=== PATIENT | male | born 1970 | race Caucasian/White ===

== ENCOUNTER → 2020-08-26 | Outpatient (CLI) | payer BC ==
[~2020-08-26] MED LIST: NORCO 325 MG-51 TAB PO; SYNTHROID 0.0.025 MG PO
== END ==
LOC: COL.RAD 14:30
DX: N13.2 Hydronephrosis with renal and ureteral calculous obstruction (principal)

== ENCOUNTER 2020-08-29 07:19 | Day surgery (SDC) | payer BC ==
[~2020-08-29] VITALS: Ht 185.4 cm; Wt 96.1 kg
[2020-08-29] MEDS ORDERED: SYNTHROID 0.0.025 MG PO (08:43)
[2020-08-29 08:44] VITALS: BP 120/80; PULSE 69; TEMP 97.7
[2020-08-29] MEDS ORDERED: NORCO 325 MG-51 TAB PO (09:48)
[2020-08-29 11:30] VITALS: BP 132/73; PULSE 117
--- NOTE | 2020-08-29 11:30 | NUR ---
Patient returns to room 4 per cart from PACU accompanied by Kendra ABDUL and is awake and alert. Temp 97.3 and room air sats 100%. Drinking orange juice and eating muffin. Denies pain or nausea. IV to INT and assisted up to the bathroom. Able to void and returns to room. Gait steady. Spouse in room.
[2020-08-29 11:45] VITALS: BP 148/90; PULSE 53
--- NOTE | 2020-08-29 11:45 | NUR ---
Resting and sipping on water and juice. Denies pain or nausea.
[2020-08-29 12:00] VITALS: BP 146/86; PULSE 55
--- NOTE | 2020-08-29 12:00 | NUR ---
INT needle discontinued and site is free of redness or swelling. Has connie up to the bathroom x3 and is able to void without difficulty.
--- NOTE | 2020-08-29 12:17 | NUR ---
Discharge instructions given and voices understanding of these.
[2020-08-29 12:30] VITALS: BP 132/73; PULSE 68; TEMP 98.6
--- NOTE | 2020-08-29 12:34 | NUR ---
Patient dismissed to home driven by spouse and taken to the front door per wheelchair and assisted into vehicle with instructions in hand.
== END 2020-08-29 12:34 | disposition home or self-care (01) ==
LOC: SDCO 07:19
DX: N20.2 Calculus of kidney with calculus of ureter (principal); Z20.822 Contact with and (suspected) exposure to COVID-19; Z79.899 Other long term (current) drug therapy; Z98.52 Vasectomy status
CPT/HCPCS: J0690; J1100; J1940; J2405; J2704; J3010; J7120; Q9967